=== PATIENT | female | born 1990 | race Caucasian/White ===

== ENCOUNTER 2018-02-28 21:26 | Outpatient (CLI) | END 2018-03-01 00:05 | disposition home or self-care (01) ==

== ENCOUNTER 2018-03-01 00:16 | Emergency (ER) | END 2018-03-01 01:08 | disposition home or self-care (01) ==

== ENCOUNTER 2018-05-25 08:51 | Inpatient (IN) | payer MEDICAID, OTHER ==
[~2018-05-25] VITALS: Ht 167.6 cm; Wt 87.9 kg
[~2018-05-25 08:51] MED LIST: PREN1TAB13 PO
[2018-05-25 09:14] VITALS: Ht 167.6 cm; Wt 87.9 kg
[2018-05-25 09:15] VITALS: BP 117/63; PULSE 75; RESP 18
--- NOTE | 2018-05-25 09:25 | TRIAGE ---
OB Triage Datetime Report Generated by CPN: 05/25/2018 09:25 Datetime: 05/25/2018 09:19 Vaginal Exam Dilatation (cms): 2.5 Effacement (%): 60 Station: -2 Exam By: silvestre Vaginal Bleeding: Normal Show Cervix, Consistency: Soft Cervix, Position: Posterior Datetime: 05/25/2018 09:12 Assessment Type: Triage Maternal Assessment Level of Consciousness: Fully Conscious DTR's/Clonus: DTRs 2+; No Clonus Headache: Denies Blurred Vision: No Respiratory Effort: Unlabored; Regular Rhythm; Equal Expansion Breath Sounds, Left: Clear and Equal Breath Sounds, Right: Clear and Equal Nausea/Vomiting: Denies RUQ Epigastric Pain: Denies Lower Extremities Edema: None Degree: None Upper Extremities Edema: None Degree: None Facial Edema: None Fall Risk Assessment History of Falling: (0) No Secondary Diagnosis: (0) No Ambulatory Aid: (0) Bedrest/Nurse Assist IV Therapy: (0) No Gait: (0) Normal/Bedrest/Immobile Mental Status: (0) Oriented to Own Ability Fall Score: 0 Fall Risk Score Definition: No Risk: No action required Datetime: 05/25/2018 09:07 Time of Arrival: 05/25/2018 08:48 EGA: 38.4 Arrived By: Ambulatory; Wheelchair Arrived From: Home Chief Complaint: PT. CAME IN C/O UC'S AND SPOTTING SINCE [id number] Movement: Present Contractions: Irregular Rupture of Membranes: Denies Vaginal Bleeding: None Vaginal Discharge: Present Recent Sexual Intercouse: Denies Abdominal Trauma: Not Applicable Patient Complaints: Contractions; Cramping; Back Pain Time Provider Notified: 05/25/2018 09:20 Provider Notified: HADADIAN Initial Plan: EFM/SVE Datetime: 05/25/2018 09:06 Labor Evaluation Monitor Mode: External Heart Rate Monitor Mode: External US Datetime: 02/28/2018 21:41 Fall Score: 0 Fall Risk Score Definition: No Risk: No action required Datetime: 02/28/2018 21:37 EGA: 26.2
[2018-05-25] MEDS ORDERED: DEXTROSE 5%-LR 1,000 ML IV SCH (09:51)
[2018-05-25] MEDS ORDERED: OXYTOCIN 30 UNITS/LR 500 ML IV SCH ×3 (10:00→20:00)
[2018-05-25] MEDS ORDERED: LIDOCAINE 1% (MPF) 30 ML INJ INJ PRN (10:00)
[2018-05-25] MEDS ORDERED: BUTORPHANOL 2 MG INJ IV PRN (10:00)
[2018-05-25] MEDS ORDERED: METHYLERGONOVINE 0.2 MG INJ IM PRN (10:00)
[2018-05-25] MEDS ORDERED: CARBOPROST 250 MCG INJ IM PRN (10:00)
[2018-05-25] MEDS ORDERED: OXYTOCIN 30 UNITS/LR 500 ML IV PRN (10:00)
[2018-05-25] MEDS ORDERED: IBUPROFEN 600 MG TAB PO PRN (10:00)
[2018-05-25] MEDS ORDERED: MISOPROSTOL 200 MCG TAB PR PRN (10:00)
[2018-05-25] MEDS: LACTATED RINGER'S 1,000 ML IV SCH ×3 (11:46→17:46)
--- NOTE | 2018-05-25 16:12 | PREAC ---
Date/Time of Note Date/Time of Note DATE: 05/25/18 TIME: 16:11 Anesthesia Eval and Record Evaluation Time Pre-Procedure Interview DATE: 05/25/18 TIME: 16:11 Age 28 Sex female NPO: Other (na) Preoperative diagnosis labor pain Planned procedure epidural Past Medical History Past Medical History: None Surgery & Anesthesia Issues No known issue Meds Anticoagulation: No Beta Ninoska within 24 hr: No Reason Beta Ninoska not given: Pt. not on B-Ninoska Discontinued Reported Medications Pnv95/Ferrous Fumarate/FA ( Vitamins Tablet) 1 Each Tablet, 1 EACH PO, TAB 02/28/18 Current Medications Lactated Ringer's 1,000 ml @ 125 mls/hr Q8H IV Last administered on 05/25/18at 15:37; Admin Dose 125 MLS/HR; Start 05/25/18 at 09:51 Dextrose/Lactated Ringer's 1,000 ml @ 125 mls/hr Q8H IV ; Start 05/25/18 at 09:51 Butorphanol Tartrate (Stadol) 2 mg Q2H PRN IV PAIN; Start 05/25/18 at 10:00 Lidocaine (Xylocaine 1% (Mpf)) 30 ml ONCE PRN INJ EPISIOTOMY; Start 05/25/18 at 10:00; Stop 05/26/18 at 09:59 Oxytocin/Lactated Ringer's 500 ml @ 500 mls/hr ONCE POST IV ; Start 05/25/18 at 10:00 Oxytocin/Lactated Ringer's 500 ml @ 125 mls/hr POST IV ; Start 05/25/18 at 10:00 Ibuprofen (Motrin) 600 mg ONCE PRN PO PAIN LEVEL 1-5; Start 05/25/18 at 10:00 Oxytocin/Lactated Ringer's 500 ml @ 0 mls/hr ONCE PRN IV VAGINAL BLEEDING; Start 05/25/18 at 10:00 Methylergonovine Maleate (Methergine) 0.2 mg ONCE PRN IM VAGINAL BLEEDING; Start 05/25/18 at 10:00 Carboprost Tromethamine (Hemabate) 250 mcg ONCE PRN IM VAGINAL BLEEDING; Start 05/25/18 at 10:00 Misoprostol (Cytotec) 1,000 mcg ONCE PRN ID VAGINAL BLEEDING; Start 05/25/18 at 10:00 Meds reviewed: Yes Allergies Coded Allergies: latex (Verified Allergy, Mild, 05/25/18) rash only with laex gloves that have power" states pt Allergies Reviewed: Yes Labs/Studies Labs Reviewed: Reviewed by anesthesiologist Result Diagram: 05/25/18 0945 Laboratory Tests 05/25/18 09:45 Blood Bank Test 05/25/18 09:45 Blood Type O POSITIVE Rh Immune Globulin Candidate NO test: N/A Pre-procedure Exam Last vitals Vital Signs Date Temp Pulse Resp B/P (MAP) Pulse Ox O2 O2 Flow FiO2 Time Delivery Rate 05/25/18 98.4 75 18 117/63 Room Air 09:15 (81) Airway: Adequate mouth opening, Adequate thyromental dist Mallampati: Mallampati III Teeth: Normal Lung: Normal Heart: Normal ASA Physical Status ASA physical status: 2 Emergency: None Pre-operative Attestations Prior to commencing anesthesia and surgery, the patient was re-evaluated, there was verification of: *The patient's identity *The results of appropriate recent lab work and preoperative vital signs *The above evaluation not changing prior to induction *Anesthetic plan, risk benefits, alternative and complications discussed with patient/family; questions answered; patient/family understands, accepts and wishes to proceed. NOREEN ASHLEY DO May 25, 2018 16:12
[2018-05-25] MEDS ORDERED: FENTAnyl 2MCG/ML-ROPIV 0.2% 100 ML ONE (16:18)
[2018-05-25] MEDS ORDERED: NALOXONE (0.4 MG/ML) INJ IV PRN (16:30)
[2018-05-25] MEDS ORDERED: FENTAnyl 2MCG/ML-ROPIV 0.2% 100 ML BAG EPI SCH (16:30)
--- NOTE | 2018-05-25 20:15 | HP ---
Date/Time of Note Date/Time of Note DATE: 05/25/18 TIME: 20:10 OB - History Hx of Present Free Text/Dictation 28-year-old 1 with single intrauterine at 38 weeks and 4 days with a TIFFANY of 06/04/2018 complaining of painful uterine contractions. She states good movement. She denies nausea, vomiting, shortness of breath, chest pain, headache, visual changes, vaginal bleeding or LOF. Chief Complaint: Uterine contractions Estimated Due Date: Jun 04, 2017 : 1 Care: Good Care Ultrasounds: Normal mid trimester US Obstetrical Complications: None Medical Complications: None Past Family/Social History * Past Medical, Surgical, Family and Obstetric Histories reviewed from chart. Blood Type: O+ Rubella: not immune RPR/VDRL: Negative GBS Status: Negative HBsAG: Negative OB Admission Exam Vital Signs Vital Signs Vital Signs Date Temp Pulse Resp B/P (MAP) Pulse Ox O2 O2 Flow FiO2 Time Delivery Rate 05/25/18 98.4 75 18 117/63 Room Air 09:15 (81) Physical Exam HEENT: WNL Heart: Rhythm Normal Lungs: Clear Abdomen: WNL Extremities: Normal Cervical Dilatation: 2cm Effacement: 75% Station: -3 Membranes: Intact Heart Rate: 140's Accelerations: Accelerations Present Decelerations: No Decelerations Varibility: Moderate Contractions on Admission: < 5 Minutes Apart Intensity: Moderate Last 72 hours Lab Results CBC & BMP 05/25/18 09:45 OB Assessment/Plan Other plan: 28-year-old 1 with single intrauterine at 38 weeks and 4 days in labor - FHR: No sign of metabolic acidosis- Category I - Continuous EFM, toco - CBC, blood type and screen - Analgesia options with R/B/A discussed in detail with patient - Epidural per patient request - Please see the orders - O+/Rubella: Equivocal. she will receive vaccine after delivery - GBS: negative Admission, procedures, expectations, risks and possible complications have been discussed in detail with the patient. Risk of vaginal delivery including but not limited to bleeding, infection, cervical laceration, placental retention, injury to fetus, blood transfusion, blood transfusion related infection, risk of anesthesia, adhesion, cervical laceration, episiotomy/laceration, possible delivery with risk of bleeding, infection, injury to other organs (bowel, bladder, ureter, vessels, nerves), injury to fetus, blood transfusion, blood transfusion related infection, risk of anesthesia, scar and hernia formation, needs for future , removal of uterus or any other indicated surgery discussed with the patient. She expressed understanding and repeats the risks. All of her questions were answered. She signed the informed consent. PHYSICIAN'S VERIFICATION OF INFORMED CONSENT The patient and her family counseled regarding the procedure, its indications, risks, potential complications and alternatives and any questions were answered. Consent was obtained. PLANNED PROCEDURE/TREATMENT: Vaginal delivery, episiotomy, repair of laceration possible delivery Addendum: Patient seen and examined at 7:30 PM heart rate category 1 Uterine contractions every 2-4 minutes SVE: 5/90/-3/cephalic/AROM done/thick meconium IUPC placed Patient tolerated procedure well. RADHA TONG May 25, 2018 20:15
[2018-05-26] MEDS ORDERED: DEXTROSE 5%-LR 1,000 ML IV SCH (00:17)
[2018-05-26] MEDS ORDERED: LACTATED RINGER'S 1,000 ML IV* SCH (00:17)
--- NOTE | 2018-05-26 00:24 | LDN ---
Date/Time of Note Date/Time of Note DATE: 05/26/18 TIME: 00:23 Delivery Summary 28-year-old 1 with single intrauterine at 38 weeks and 4 days delivered a viable male over a median episiotomy. Cord clamped and cut. Amniotic fluid with thick meconium. Baby given to the resuscitation team. Placenta delivered spontaneously and intact with green membrane and placental surface. Episiotomy repaired with 2-0 Vicryl. Patient tolerated procedure well. Time of delivery 22:58 Weight 7 pounds 13 ounces Height 20.5 inches 8 at 1 minutes and 9 at 5 minutes EBL 200 The baby initially did well, however due to having persistent grunting later on patient transferred to NICU for close monitoring Weeks of Gestation 38 weeks and 4 days Placenta Delivered: Spontaneously Meconium: Thick Episiotomy: Yes Anesthesia type: Epidural Estimated blood loss: 200 Sponge & Needle done & correct: Yes All needle counts correct: Yes Any foreign bodies felt in the: No Infant Delivery Information Sex Sex: male Apgars 1 Minute: 8 5 Minute: 9 10 Minute: 10 Suctioning Nose & mouth suctioned at aleida: No Umbilical Cord Umbilical cord with: 3 Vessels Cord presentations: no nuchal cord Cord Blood was obtained: Yes Mother & Baby Disposition Disposition Mom transferred to: Other () Baby to NICU: Yes RADHA TONG May 26, 2018 00:24
[2018-05-26] MEDS ORDERED: ZOLPIDEM 5 MG TAB PO PRN (00:30)
[2018-05-26] MEDS ORDERED: ONDANSETRON 4 MG INJ IV PRN (00:30)
[2018-05-26] MEDS ORDERED: LANOLIN HPA 1 PKT TOP PRN (00:30)
[2018-05-26] MEDS ORDERED: BENZOCAINE 20% 56 ML SPRAY TOP PRN (00:30)
[2018-05-26] MEDS ORDERED: CARBOPROST 250 MCG INJ IM PRN (00:30)
[2018-05-26] MEDS ORDERED: MISOPROSTOL 200 MCG TAB PR PRN (00:30)
[2018-05-26] MEDS ORDERED: SENNA/DOCUSATE NA (8.6MG/50MG) TAB PO PRN (00:30)
[2018-05-26] MEDS ORDERED: WITCH HAZEL/GLYCERIN PAD PR PRN (00:30)
[2018-05-26] MEDS ORDERED: DIBUCAINE 1% 30 GM OINT TOP PRN (00:30)
[2018-05-26] MEDS ORDERED: DIPHENHYDRAMINE 50 MG INJ IV PRN (00:30)
[2018-05-26] MEDS ORDERED: METHYLERGONOVINE 0.2 MG INJ IM PRN (00:30)
[2018-05-26] MEDS ORDERED: OXYCODONE/ASPIRIN (4.88/325) TAB PO PRN (00:30)
[2018-05-26] MEDS ORDERED: ACETAMINOPHEN 325 MG TAB PO PRN (00:30)
[2018-05-26] MEDS ORDERED: OXYTOCIN 30 UNITS/LR 500 ML IV PRN (00:30)
[2018-05-26 01:40] VITALS: BP 134/83; PULSE 73; RESP 17
[2018-05-26 04:29] VITALS: BP 117/72; PULSE 88; RESP 17
--- NOTE | 2018-05-26 04:34 | NUR ---
EOSS v/s stable, fundus firm & contracted, light lochia, voided x1 with out difficulty, initiated breast pump - mom requested to do later, for cbc tomorrow.
[2018-05-26] MEDS: IBUPROFEN 600 MG TAB PO SCH ×3 (05:40→18:18)
[2018-05-26 07:59] VITALS: BP 101/49; PULSE 73; RESP 18
[2018-05-26 12:01] VITALS: BP 103/58; PULSE 79; RESP 18
--- NOTE | 2018-05-26 14:13 | NUR ---
BEDSIDE REPORT GIVEN TO DUSTY MOON, TRANSFERRED CARE OF PT.
[2018-05-26 15:30] VITALS: BP 117/67; PULSE 84; RESP 18
--- NOTE | 2018-05-26 18:30 | NUR ---
EOSS: PT REMAINS STABLE. PT UNSURE ABOUT FLU AND MMR VACCINE CONSENTS; WILL LET NURSE KNOW WHEN SHE DECIDES IF SHE WANTS TO RECEIVE THESE VACCINATIONS.
--- NOTE | 2018-05-26 18:44 | PN ---
Date/Time of Note Date/Time of Note DATE: 05/26/18 TIME: 18:41 OB Subjective Subjective Subjective PPD# 1 Patient is doing well. She denies nausea, vomiting, shortness of breath, chest pain, headache. She has been ambulating without difficulty, tolerating regular diet. Pain is well controlled on current medications OB Objective Objective Objective Vital Signs Date Temp Pulse Resp B/P (MAP) Pulse Ox O2 O2 Flow FiO2 Time Delivery Rate 05/26/18 97.5 84 18 117/67 Room Air 15:30 (84) General: AAO X 3, comfortable, NAD, appropriate mood and affect. ABD: +BS. Soft, non-tender. Uterus 2 cm below umbilicus Flank: No CVA tenderness (B/L) LE: Mild edema. No clubbing, cyanosis, thigh or calf tenderness (B/L). Homans 's ign is negative OB Assessment/Plan Other plan: 28-year-old 1 para 1001 s/p normal vaginal delivery at 38 weeks and 4 days. PPD#1 - AF, VSS - Baby is in NICU, overall doing well. She is bonding well with - Contraception methods with R/B/A/FR discussed - Continue care - Discharge home tomorrow - Rx and instruction given - Follow up in 2 and 6 weeks at clinic RADHA TONG May 26, 2018 18:44
--- NOTE | 2018-05-26 18:44 | DS ---
Date/Time of Note Date/Time of Note DATE: 05/26/18 TIME: 18:44 Obstetrical Discharge Record Final Diagnosis Final Diagnosis: Term delivered Other Final Diagnosis 28-year-old 1 para 1001 s/p normal vaginal delivery at 38 weeks and 4 days. PPD#1. - AF, VSS - Baby is in NICU, overall doing well. She is bonding well with - Contraception methods with R/B/A/FR discussed - Continue care - Discharge home tomorrow - Rx and instruction given - Follow up in 2 and 6 weeks at clinic Vaginal Delivery Obstetrical Delivery: Spontaneous Condition on Discharge Physical Assessment Voiding: Yes Breast: Soft, non-tender Fundus: Firm Calf Tenderness: No Patient Condition: Stable RADHA TONG May 26, 2018 18:44
[2018-05-26 20:00] VITALS: BP 112/71; PULSE 92; RESP 17
[2018-05-27] MEDS: IBUPROFEN 600 MG TAB PO SCH ×3 (00:30→12:05)
[2018-05-27 04:00] VITALS: BP 113/57; PULSE 70; RESP 19
--- NOTE | 2018-05-27 05:37 | NUR ---
EOSS: PT REMAINS STABLE. PT SIGNED CONSENT FOR FLU VACCINE AND MMR. FLU VACCINE ADMINISTERED. PT BONDING WELL WITH BABY.
[2018-05-27 07:52] VITALS: BP 115/54; PULSE 77; RESP 18
--- NOTE | 2018-05-27 15:44 | NUR ---
DISCHARGE TEACHING GIVEN TO PT, REMINDED PT, REGARDING SIDE EFFECT OF MEDICATION . ALSO PREVENTION OF INFECTION . FOLLOW UP IN CLINIC . PT, DEMONSTRATED THAT SHE UNDERSTOOD.
--- NOTE | 2018-05-27 16:58 | NUR ---
discharged home with baby and family .
[2018-05-28] MEDS ORDERED: MEASLES,MUMPS,RUBELLA VACCINE INJ SC* ONE (09:00)
== END 2018-05-27 16:45 | disposition home or self-care (01) | DRG 807 ==
LOC: OBT 08:51 → L-D 08:52 → OBT 09:27 → PP1 05-26 01:34
PROVIDERS: ADMIT Obstetrics & Gynecology; ATTEND Obstetrics & Gynecology
PROC: 10E0XZZ Delivery of Products of Conception, External Approach (ICD-10-PCS; principal; 2018-05-25)
DX: O80 Encounter for full-term uncomplicated delivery (principal); Z37.0 Single live birth; Z3A.38 38 weeks gestation of pregnancy
CPT/HCPCS: 62319; 85025; 85610; 85730; 86592; 86900; 86901; 87340; 90686; 99464; G0463; J2590; J3010; J7120; J7121